=== PATIENT | female | born 1950 | race Caucasian/White ===

== ENCOUNTER → 2021-02-26 | Outpatient (CLI) | payer MEDICARE, BC ==
[~2021-02-26] MED LIST: ELIQUIS5 MG PO; LEVOTHYROXINE50 MCG PO; MINOCIN CAPSULE50 MG PO; PRINIVIL10 MG PO; TOPROL XL25 MG PO
== END ==
LOC: US 02-24 10:30
DX: N17.9 Acute kidney failure, unspecified (principal)